=== PATIENT | female | born 1995 | race Caucasian/White ===

== ENCOUNTER 2018-02-04 13:52 | Emergency (ER) | payer OTHER ==
[2018-02-04 14:06] VITALS: BP 113/62; PULSE 100; TEMP 98; BMI 25.4
[2018-02-04 14:35] LABS: URINE APPEARANCE SLCLOUDY; URINE BILIRUBIN NEGATIVE (<2.0 mg/dL); URINE COLOR YELLOW; URINE GLUCOSE (UA) NEGATIVE (NEGATIVE); URINE KETONE NEGATIVE (NEGATIVE); URINE NITRITE NEGATIVE (NEGATIVE); URINE PROTEIN NEGATIVE (NEGATIVE); URINE UROBILINOGEN NEGATIVE mg/dL (0.2-1.0)
[2018-02-04 14:36] LABS: HCG,QUALITATIVE URINE Negative
[2018-02-04 14:38] LABS: URINE LEUK ESTERASE 3+ (NEGATIVE)
[2018-02-04 14:40] LABS: EPI CELLS MODERATE /HPF (FEW); URINE BACTERIA RARE /hpf (NONE SEEN); URINE HYALINE CAST 1 /lpf; URINE MUCUS RARE
[2018-02-04] MEDS ORDERED: CEPHALEXIN MONOHYDRATE 500 MG CAPSULE (UD) PO ONE (15:04)
[2018-02-04] MEDS ORDERED: PHENAZOPYRIDINE HCL 100 MG TABLET (FP) PO ONE (15:04)
--- NOTE | 2018-02-04 15:08 | PDOC ---
History of Present Illness - General Chief Complaint: Urinary Problem Stated Complaint: POSSIBLE UTI Time Seen by Provider: 02/04/18 14:10 History Source: Patient Exam Limitations: No Limitations - History of Present Illness Travel History: No Initial Comments: 02/04/18 15:05 Onset of pain, burning, frequency this morning. States has suffered from urinary tract infections the past but has not had one in over a year. Denies fever, nausea vomiting or chills. States has mild suprapubic tenderness. Timing/Duration: reports: constant, getting worse Quality: reports: mild, fullness Past History - Travel Traveled outside of the country in the last 30 days: No Close contact w/someone who was outside of country & ill: No - Past Medical History Allergies/Adverse Reactions: Allergies Allergy/AdvReac Type Severity Reaction Status Date / Time No Known Allergies Allergy Verified 02/04/18 14:06 Home Medications: Ambulatory Orders Cephalexin Monohydrate [Keflex -] 500 mg PO Q8H #21 capsule 02/04/18 Phenazopyridine HCl [Pyridium] 200 mg PO Q8H PRN #7 tablet 02/04/18 COPD: No - Suicide/Smoking/Psychosocial Hx Smoking History: Never smoked Review of Systems - Review of Systems Able to Perform ROS?: Yes Is the patient limited [place] proficient: Yes Constitutional: Yes: Symptoms Reported, See HPI, Malaise. No: Fever HEENTM: Yes: Symptoms Reported Respiratory: Yes: See HPI. No: Symptoms reported ABD/GI: Yes: Symptoms Reported, See HPI. No: Vomiting, Indigestion : Yes: Symptoms Reported, See HPI, Dysuria, Frequency, Urgency. No: Flank Pain All Other Systems: Reviewed and Negative *Physical Exam - Vital Signs Last Vital Signs Temp Pulse Resp BP Pulse Ox 98 F 100 H 20 113/62 98 02/04/18 14:04 02/04/18 14:04 02/04/18 14:04 02/04/18 14:04 02/04/18 14:04 - Physical Exam General Appearance: Yes: Nourished, Appropriately Dressed, Apparent Distress HEENT: positive: FRED, Normal ENT Inspection, TMs Normal, Pharynx Normal Gastrointestinal/Abdominal: positive: Tender, Soft, Other (mild suprapubic tenderness) Musculoskeletal: positive: Normal Inspection Extremity: positive: Normal Capillary Refill, Normal Inspection Integumentary: positive: Dry, Warm 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 ED Treatment Course - ADDITIONAL ORDERS Additional order review: Laboratory Results 02/04/18 14:22 Urine Color Yellow Urine Appearance Slcloudy Urine pH 5.0 Ur Specific [place] 1.026 Urine Protein Negative Urine Glucose (UA) Negative Urine Ketones Negative Urine Blood Negative Urine Nitrite Negative Urine Bilirubin Negative Urine Urobilinogen Negative Ur Leukocyte Esterase 3+ H Urine WBC (Auto) 113 Urine RBC (Auto) 7 Ur Epithelial Cells Moderate Urine Bacteria Rare Hyaline Casts 1 Urine Mucus Rare Urine HCG, Qual Negative Progress Note - Progress Note Progress Note: Urinary tract infection, we'll treat with Keflex and Pyridium, given first dose here. *DC/Admit/Observation/Transfer Diagnosis at time of Disposition: UTI (urinary tract infection) Qualifiers: Urinary tract infection type: acute cystitis Hematuria presence: without hematuria Qualified Code(s): N30.00 - Acute cystitis without hematuria - Discharge Dispostion Disposition: HOME Condition at time of disposition: Stable Decision to Admit order: No - Referrals Referrals: Dinah Rivera [Primary Care Provider] - - Patient Instructions Printed Discharge Instructions: DI for Urinary Tract Infection (UTI) Additional Instructions: Rest, drink lots of fluids: Teas, water, soups Avoid contact with others until fevers and symptoms resolved Lots of handwashing and good hygiene Continue [id number] medications for symptomatic relief Tylenol or Motrin for fever and pain Continue all of antibiotics until completed Followup with private physician in one week for repeat urinalysis/reevaluation Return to emergency department for worsened symptoms, fevers, dehydration - Post Discharge Activity
[2018-02-04] MEDS ORDERED: PHENAZOPYRIDINE HCL 100 MG TABLET (FP) ONE ×2 (15:10→15:13)
[2018-02-04] MEDS ORDERED: CEPHALEXIN MONOHYDRATE 500 MG CAPSULE (UD) ONE (15:11)
== END 2018-02-04 15:28 | disposition home or self-care (01) ==
LOC: JERFT 13:52
DX: N30.00 Acute cystitis without hematuria (principal)
CPT/HCPCS: 81003; 81015; 84703; 99281-25